=== PATIENT | male | born 1960 | race Caucasian/White ===

== ENCOUNTER 2016-11-23 17:50 | Emergency (ER) | payer BC ==
[~2016-11-23] VITALS: Ht 170.2 cm; Wt 74.8 kg
[2016-11-23 19:38] LABS: BASOPHILS # (AUTO) 0.1 K/uL (0.0-8.0); BASOPHILS % (AUTO) 0.8 % (0.0-2.0); EOSINOPHILS # (AUTO) 0.1 K/uL (0.0-0.7); EOSINOPHILS % (AUTO) 1.7 % (0.0-7.0); HEMATOCRIT 41.9 % (36.7-47.1); HEMOGLOBIN 14.1 g/dL (12.5-16.3); LYMPHOCYTES # (AUTO) 1.4 K/uL (20.0-40.0); LYMPHOCYTES % (AUTO) 19.3 % (20.5-51.5); MEAN CORPUSCULAR HEMOGLOBIN 29.9 uug (23.8-33.4); MEAN CORPUSCULAR HGB CONC 34 g/dL (32.5-36.3); MEAN CORPUSCULAR VOLUME 88.5 fL (73.0-96.2); MONOCYTES # (AUTO) 0.7 K/uL (2.0-10.0); MONOCYTES % (AUTO) 9.8 % (0.0-11.0); NEUTROPHILS # (AUTO) 4.8 K/uL (1.8-8.9); NEUTROPHILS % (AUTO) 68.4 % (38.5-71.5); PLATELET COUNT (AUTO) 197 K/uL (152-348); RED BLOOD CELL COUNT(AUTO) 4.74 MIL/uL (4.06-5.63); RED CELL DISTRIBUTION WIDTH 12.5 % (12.1-16.2); WHITE BLOOD COUNT (AUTO) 7.1 K/uL (3.6-10.2)
[2016-11-23 19:49] LABS: CALCIUM 9.1 mg/dL (8.5-10.1); POTASSIUM 4.6 mmol/L (3.5-5.1)
[2016-11-23 19:55] LABS: ALBUMIN 3.9 g/dL (3.4-5.0); BILIRUBIN,TOTAL 0.5 mg/dL (0.2-1.0); TOTAL PROTEIN, SERUM 7.1 g/dL (6.4-8.2)
--- NOTE | 2016-11-23 20:42 | NUR ---
Patient discharged to home in stable conditon. Written and verbal after care instructions given. Patient verbalizes understanding of instructions.
== END 2016-11-23 20:44 | disposition home or self-care (01) ==
LOC: ER 17:50
DX: R59.0 Localized enlarged lymph nodes (principal); F41.9 Anxiety disorder, unspecified; M19.90 Unspecified osteoarthritis, unspecified site; F10.20 Alcohol dependence, uncomplicated; F17.200 Nicotine dependence, unspecified, uncomplicated; Z90.49 Acquired absence of other specified parts of digestive tract
CPT/HCPCS: 36415; 85025; 85651; A4663

== ENCOUNTER 2016-12-07 17:25 | Emergency (ER) | payer BC ==
[~2016-12-07] VITALS: Ht 170.2 cm; Wt 74.8 kg
[2016-12-07 17:50] LABS: *BILIRUBIN,URIN NEGATIVE (NEGATIVE); *BLOOD, URINE NEGATIVE (NEGATIVE); *CLARITY,URINE CLEAR (CLEAR); *COLOR,URINE YELLOW (YELLOW); *KETONES,URINE NEGATIVE (NEGATIVE); *PROTEIN,URINE NEGATIVE (NEGATIVE); *UROBILINOGEN,URINE 0.2 E.U./dl (NORMAL); LEUKOCYTE ESTERASE ,URINE NEGATIVE (NEGATIVE); NITRITE, URINE NEGATIVE (NEGATIVE); PH,URINE 6.5 (5.0-8.0); UGLUCOSE NEGATIVE (NEGATIVE)
[2016-12-07 18:02] LABS: BACTERIA,URINE NONE SEEN /HPF (NONE SEEN); RBC,URINE 0-3 /HPF (0-3); SQUAMOUS EPITHELIAL CELL,UR FEW /HPF (NONE SEEN); WBC,URINE 0-3 /HPF (0-3)
--- NOTE | 2016-12-07 19:11 | NUR ---
Pt evaluated by MD for lower abd pain. A/O x 4, VSS, nad noted, ambulates w/ steady gait. Patient discharged home in stable conditon. Written and verbal after care instructions given. Patient verbalizes understanding of instructions.
[2016-12-07 19:12] VITALS: BP 146/79
== END 2016-12-07 19:13 | disposition home or self-care (01) ==
LOC: ER 17:25
DX: R10.32 Left lower quadrant pain (principal); R10.31 Right lower quadrant pain; F41.9 Anxiety disorder, unspecified; M19.90 Unspecified osteoarthritis, unspecified site; F10.20 Alcohol dependence, uncomplicated; F17.200 Nicotine dependence, unspecified, uncomplicated; Z90.49 Acquired absence of other specified parts of digestive tract
CPT/HCPCS: A4663

== ENCOUNTER 2017-02-17 19:30 | Emergency (ER) | payer BC ==
[~2017-02-17] VITALS: Ht 167.6 cm; Wt 74.8 kg
[2017-02-17] MEDS ORDERED: IBUPROFEN 800 MG TABLET PO ONE (21:15)
[2017-02-17] MEDS ORDERED: IBUPROFEN 800 MG TABLET ONE (21:24)
[2017-02-17 21:25] LABS: BASOPHILS # (AUTO) 0.1 K/uL (0.0-8.0); BASOPHILS % (AUTO) 1.9 % (0.0-2.0); EOSINOPHILS # (AUTO) 0.2 K/uL (0.0-0.7); EOSINOPHILS % (AUTO) 2.4 % (0.0-7.0); HEMATOCRIT 40.6 % (40-50); HEMOGLOBIN 13.8 G/DL (14.0-18.0); LYMPHOCYTES # (AUTO) 1.9 K/UL (0.8-4.8); LYMPHOCYTES % (AUTO) 27.1 % (20.5-51.5); MEAN CORPUSCULAR HEMOGLOBIN 29.8 UUG (27.0-31.0); MEAN CORPUSCULAR HGB CONC 34 g/dL (32.0-37.0); MEAN CORPUSCULAR VOLUME 87.9 FL (82.0-92.0); MONOCYTES # (AUTO) 0.7 K/UL (0.1-1.30); MONOCYTES % (AUTO) 10.1 % (0.0-11.0); NEUTROPHILS % (AUTO) 58.5 % (38.5-71.5); PLATELET COUNT (AUTO) 193 K/UL (150-450); RED BLOOD CELL COUNT(AUTO) 4.62 MIL/UL (4.7-6.1); WHITE BLOOD COUNT (AUTO) 6.9 K/UL (4.0-11.2)
[2017-02-17 21:45] LABS: CREATININE 1.1 mg/dL (0.6-1.3); POTASSIUM 3.8 mmol/L (3.5-5.1)
--- NOTE | 2017-02-17 21:48 | NUR ---
Radiology at bedside for US.
[2017-02-17 21:51] LABS: BILIRUBIN,DIRECT 0.1 mg/dL (0.0-0.2); BILIRUBIN,TOTAL 0.3 mg/dL (0.2-1.0)
--- NOTE | 2017-02-17 23:51 | NUR ---
Patient discharged to home in stable conditon. Written and verbal after care instructions given. Patient verbalizes understanding of instructions.
== END 2017-02-17 23:52 | disposition home or self-care (01) ==
LOC: ER 19:30
DX: M79.604 Pain in right leg (principal); M19.90 Unspecified osteoarthritis, unspecified site; F10.20 Alcohol dependence, uncomplicated; F17.200 Nicotine dependence, unspecified, uncomplicated; F41.9 Anxiety disorder, unspecified; Z90.49 Acquired absence of other specified parts of digestive tract
CPT/HCPCS: 36415; 70030-TC; 72170; 73551; 73590; 85025; 85651; 85730; A4663

== ENCOUNTER 2017-12-06 10:01 | Emergency (ER) | payer BC ==
[~2017-12-06] VITALS: Ht 172.7 cm; Wt 83.9 kg
[2017-12-06 11:51] LABS: BASOPHILS # (AUTO) 0.1 K/uL (0.0-8.0); BASOPHILS % (AUTO) 1.3 % (0.0-2.0); EOSINOPHILS # (AUTO) 0.2 K/uL (0.0-0.7); EOSINOPHILS % (AUTO) 2.2 % (0.0-7.0); HEMATOCRIT 41.3 % (36.7-47.1); LYMPHOCYTES # (AUTO) 1.1 K/uL (20.0-40.0); LYMPHOCYTES % (AUTO) 15.4 % (20.5-51.5); MEAN CORPUSCULAR HGB CONC 34 g/dL (32.5-36.3); MONOCYTES # (AUTO) 0.9 K/uL (2.0-10.0); MONOCYTES % (AUTO) 12.3 % (0.0-11.0); NEUTROPHILS # (AUTO) 4.9 K/uL (1.8-8.9); NEUTROPHILS % (AUTO) 68.8 % (38.5-71.5); PLATELET COUNT (AUTO) 208 K/uL (152-348); RED BLOOD CELL COUNT(AUTO) 4.81 MIL/uL (4.06-5.63); WHITE BLOOD COUNT (AUTO) 7.1 K/uL (3.6-10.2)
[2017-12-06 12:06] LABS: CREATININE 1.1 mg/dL (0.6-1.3); POTASSIUM 4.7 mmol/L (3.5-5.1)
[2017-12-06 12:18] LABS: BILIRUBIN,DIRECT 0.1 mg/dL (0.0-0.2); BILIRUBIN,TOTAL 0.5 mg/dL (0.2-1.0)
--- NOTE | 2017-12-06 13:41 | NUR ---
Patient discharged to home in stable conditon. Written and verbal after care instructions given. Patient verbalizes understanding of instructions.
[2017-12-06 13:42] VITALS: BP 128/77
== END 2017-12-06 13:43 | disposition home or self-care (01) ==
LOC: ER 10:03
DX: R07.89 Other chest pain (principal); J45.909 Unspecified asthma, uncomplicated; M19.90 Unspecified osteoarthritis, unspecified site; F41.9 Anxiety disorder, unspecified; N41.9 Inflammatory disease of prostate, unspecified
CPT/HCPCS: 36415; 70030-TC; 71045; 85025; 85730; 93005; A4663

== ENCOUNTER 2018-05-25 11:17 | Emergency (ER) | payer BC ==
[~2018-05-25] VITALS: Ht 172.7 cm; Wt 81.6 kg
[2018-05-25 11:37] LABS: BASOPHILS # (AUTO) 0.1 K/uL (0.0-8.0); BASOPHILS % (AUTO) 1.2 % (0.0-2.0); EOSINOPHILS # (AUTO) 0.1 K/uL (0.0-0.7); EOSINOPHILS % (AUTO) 2.2 % (0.0-7.0); HEMOGLOBIN 14.3 g/dL (12.5-16.3); LYMPHOCYTES # (AUTO) 1.6 K/uL (20.0-40.0); LYMPHOCYTES % (AUTO) 25.7 % (20.5-51.5); MEAN CORPUSCULAR HEMOGLOBIN 30.5 uug (23.8-33.4); MEAN CORPUSCULAR HGB CONC 35 g/dL (32.5-36.3); MEAN CORPUSCULAR VOLUME 87.4 fL (73.0-96.2); MONOCYTES # (AUTO) 0.7 K/uL (2.0-10.0); MONOCYTES % (AUTO) 11.3 % (0.0-11.0); NEUTROPHILS # (AUTO) 3.7 K/uL (1.8-8.9); NEUTROPHILS % (AUTO) 59.6 % (38.5-71.5); PLATELET COUNT (AUTO) 214 K/uL (152-348); RED BLOOD CELL COUNT(AUTO) 4.69 MIL/uL (4.06-5.63); WHITE BLOOD COUNT (AUTO) 6.3 K/uL (3.6-10.2)
[2018-05-25 11:50] LABS: CREATININE 1.1 mg/dL (0.6-1.3); POTASSIUM 3.8 mmol/L (3.5-5.1)
[2018-05-25 11:55] LABS: BILIRUBIN,DIRECT 0.1 mg/dL (0.0-0.2); BILIRUBIN,TOTAL 0.4 mg/dL (0.2-1.0); TOTAL PROTEIN, SERUM 7.2 g/dL (6.4-8.2)
--- NOTE | 2018-05-25 12:40 | NUR ---
Patient discharged to home in stable conditon. Written and verbal after care instructions given. Patient verbalizes understanding of instructions.pt says feels better.
[2018-05-25 14:30] VITALS: BP 131/89
== END 2018-05-25 12:45 | disposition home or self-care (01) ==
LOC: ER 11:17
DX: R07.89 Other chest pain (principal); F17.200 Nicotine dependence, unspecified, uncomplicated
CPT/HCPCS: 36415; 70030-TC; 71045; 85025; 85730; 93005; A4663

== ENCOUNTER 2018-09-13 07:52 | Emergency (ER) | payer BC ==
[~2018-09-13] VITALS: Ht 172.7 cm; Wt 81.6 kg
--- NOTE | 2018-09-13 08:16 | NUR ---
Dr. Flynn at the bedside for MSE.
[2018-09-13] MEDS ORDERED: predniSONE 50 MG TABLET ONE (08:43)
[2018-09-13] MEDS ORDERED: predniSONE 50 MG TABLET PO ONE (08:45)
--- NOTE | 2018-09-13 09:14 | NUR ---
Patient discharged to home in stable conditon. Written and verbal after care instructions given. Patient verbalizes understanding of instructions.
[2018-09-13 09:15] VITALS: BP 123/72
== END 2018-09-13 09:16 | disposition home or self-care (01) ==
LOC: ER 07:52
DX: R60.9 Edema, unspecified (principal); F17.200 Nicotine dependence, unspecified, uncomplicated; Z90.49 Acquired absence of other specified parts of digestive tract
CPT/HCPCS: 36415; 86403; 87070; 99283; J7512; A4663

== ENCOUNTER 2019-01-16 09:09 | Emergency (ER) | payer BC ==
[~2019-01-16] VITALS: Ht 172.7 cm; Wt 83.9 kg
--- NOTE | 2019-01-16 09:37 | NUR ---
PT IS IN ROOM #1B. DR HURST EVALUATED THE PT.
[2019-01-16 09:48] LABS: BASOPHILS # (AUTO) 0.1 K/uL (0.0-8.0); BASOPHILS % (AUTO) 1.2 % (0.0-2.0); EOSINOPHILS # (AUTO) 0.1 K/uL (0.0-0.7); EOSINOPHILS % (AUTO) 2.1 % (0.0-7.0); HEMATOCRIT 42.2 % (36.7-47.1); LYMPHOCYTES # (AUTO) 1.3 K/uL (20.0-40.0); LYMPHOCYTES % (AUTO) 21.8 % (20.5-51.5); MEAN CORPUSCULAR HEMOGLOBIN 28.3 uug (23.8-33.4); MEAN CORPUSCULAR HGB CONC 33 g/dL (32.5-36.3); MEAN CORPUSCULAR VOLUME 85.6 fL (73.0-96.2); MONOCYTES # (AUTO) 0.7 K/uL (2.0-10.0); MONOCYTES % (AUTO) 12.4 % (0.0-11.0); NEUTROPHILS # (AUTO) 3.7 K/uL (1.8-8.9); NEUTROPHILS % (AUTO) 62.5 % (38.5-71.5); PLATELET COUNT (AUTO) 194 K/uL (152-348); RED BLOOD CELL COUNT(AUTO) 4.93 MIL/uL (4.06-5.63); WHITE BLOOD COUNT (AUTO) 5.9 K/uL (3.6-10.2)
[2019-01-16 09:49] LABS: CREATININE 1.3 mg/dL (0.6-1.3)
[2019-01-16 10:02] LABS: BILIRUBIN,DIRECT 0.2 mg/dL (0.0-0.2); BILIRUBIN,TOTAL 1.1 mg/dL (0.2-1.0); TOTAL PROTEIN, SERUM 7.4 g/dL (6.4-8.2)
--- NOTE | 2019-01-16 14:06 | NUR ---
PT WAS D/C'd TO HOME. D/C INSTRUCTIONS GIVEN TO THE PT.
[2019-01-16 14:10] VITALS: BP 129/72
== END 2019-01-16 14:11 | disposition home or self-care (01) ==
LOC: ER 09:10
DX: R07.89 Other chest pain (principal); F17.200 Nicotine dependence, unspecified, uncomplicated; Z90.49 Acquired absence of other specified parts of digestive tract
CPT/HCPCS: 36415; 70030-TC; 71045; 85025; 85730; 93005; A4663

== ENCOUNTER 2019-03-17 17:43 | Emergency (ER) | payer BC ==
[~2019-03-17] VITALS: Ht 170.2 cm; Wt 79.4 kg
--- NOTE | 2019-03-17 18:03 | NUR ---
PATIENT WAS SEEN BY . DC, RX AND FOLLOW UP INSTRUCTIONS GIVEN AND EXPLAINED TO PATIENT WHO STATES HE UNDERSTANDS ALL INSTRUCTIONS.
== END 2019-03-17 18:09 | disposition home or self-care (01) ==
LOC: ER 17:43
DX: K64.4 Residual hemorrhoidal skin tags (principal); E11.9 Type 2 diabetes mellitus without complications; F41.9 Anxiety disorder, unspecified; F17.200 Nicotine dependence, unspecified, uncomplicated; Z90.49 Acquired absence of other specified parts of digestive tract
CPT/HCPCS: A4663

== ENCOUNTER 2019-07-15 12:35 | Emergency (ER) | payer BC ==
[~2019-07-15] VITALS: Ht 170.2 cm; Wt 83.9 kg
[2019-07-15] MEDS ORDERED: FAMO10TA41 PO (12:40)
[2019-07-15 12:58] LABS: BASOPHILS # (AUTO) 0.1 K/uL (0.0-8.0); BASOPHILS % (AUTO) 1.4 % (0.0-2.0); EOSINOPHILS # (AUTO) 0.1 K/uL (0.0-0.7); EOSINOPHILS % (AUTO) 1.2 % (0.0-7.0); HEMATOCRIT 43.6 % (36.7-47.1); HEMOGLOBIN 14.5 g/dL (12.5-16.3); LYMPHOCYTES # (AUTO) 1.1 K/uL (20.0-40.0); LYMPHOCYTES % (AUTO) 16.8 % (20.5-51.5); MEAN CORPUSCULAR HEMOGLOBIN 29.4 uug (23.8-33.4); MEAN CORPUSCULAR HGB CONC 33 g/dL (32.5-36.3); MEAN CORPUSCULAR VOLUME 88.2 fL (73.0-96.2); MONOCYTES # (AUTO) 0.6 K/uL (2.0-10.0); MONOCYTES % (AUTO) 8.9 % (0.0-11.0); NEUTROPHILS # (AUTO) 4.6 K/uL (1.8-8.9); NEUTROPHILS % (AUTO) 71.7 % (38.5-71.5); PLATELET COUNT (AUTO) 289 K/uL (152-348); RED BLOOD CELL COUNT(AUTO) 4.94 MIL/uL (4.06-5.63); WHITE BLOOD COUNT (AUTO) 6.5 K/uL (3.6-10.2)
[2019-07-15 13:01] LABS: *BILIRUBIN,URIN NEGATIVE (NEGATIVE); *CLARITY,URINE CLEAR (CLEAR); *COLOR,URINE YELLOW (YELLOW); *KETONES,URINE NEGATIVE (NEGATIVE); *UROBILINOGEN,URINE 0.2 E.U./dl (NORMAL); LEUKOCYTE ESTERASE ,URINE NEGATIVE (NEGATIVE); NITRITE, URINE NEGATIVE (NEGATIVE); PH,URINE 6.5 (5.0-8.0); UGLUCOSE NEGATIVE (NEGATIVE)
[2019-07-15 13:03] LABS: *BLOOD, URINE NEGATIVE (NEGATIVE)
[2019-07-15] MEDS ORDERED: FAMOTIDINE. 20 MG/2 ML VIAL IV ONE (13:07)
[2019-07-15] MEDS ORDERED: LIDOCAINE VISCUS 2% 15 ML UDC ONE (13:07)
[2019-07-15] MEDS ORDERED: MAG HYDROX/AL HYDROX/SIMETH 30 ML LIQUID UDC ONE (13:07)
[2019-07-15] MEDS: FAMOTIDINE. 20 MG/2 ML VIAL IV ONE (13:08)
[2019-07-15] MEDS: LIDOCAINE VISCUS 2% 15 ML UDC MM ONE (13:10)
[2019-07-15] MEDS: MAG HYDROX/AL HYDROX/SIMETH 30 ML LIQUID UDC PO ONE (13:10)
--- NOTE | 2019-07-15 14:13 | NUR ---
Patient is resting comfortably on gurney while watching bedside TV.
--- NOTE | 2019-07-15 15:19 | NUR ---
still for results & disposition, OUT for lunch, endorsed to DAR De Santiago
[2019-07-15 16:44] LABS: CREATININE 1.1 mg/dL (0.6-1.3); POTASSIUM 4.1 mmol/L (3.5-5.1)
[2019-07-15 16:49] LABS: BILIRUBIN,DIRECT 0.1 mg/dL (0.0-0.2); BILIRUBIN,TOTAL 0.5 mg/dL (0.2-1.0); TOTAL PROTEIN, SERUM 7.8 g/dL (6.4-8.2)
--- NOTE | 2019-07-15 17:12 | NUR ---
IV removed. Catheter intact and site benign. Pressure and 4x4 gauze applied to site. No bleeding noted.
--- NOTE | 2019-07-15 17:13 | NUR ---
Patient discharged to home in stable conditon. Written and verbal after care instructions given. Patient verbalizes understanding of instructions.
== END 2019-07-15 17:14 | disposition home or self-care (01) ==
LOC: ER 12:35
DX: R10.12 Left upper quadrant pain (principal); F41.9 Anxiety disorder, unspecified; F17.200 Nicotine dependence, unspecified, uncomplicated; Z90.49 Acquired absence of other specified parts of digestive tract; Z79.899 Other long term (current) drug therapy
CPT/HCPCS: 36415; 74176; 80048; 80076; 81001; 83690; 85025; 96374; 99284; J3490; A4663

== ENCOUNTER 2019-08-03 10:06 | Emergency (ER) | payer BC ==
[~2019-08-03] VITALS: Ht 170.2 cm; Wt 83.9 kg
[~2019-08-03 10:06] MED LIST: FAMO10TA41 PO
--- NOTE | 2019-08-03 10:20 | NUR ---
Patient ambulated with stable gait. Speech is clear, speaks in complete sentences. A/Ox4. No acute neuro deficits. Patient came for c/o elevated blood pressure. Denies any ANTONIO, dizziness, or any shortness of breath. Denies CP. Patient appears very anxious, states he does take anti-anxiety medications at home.
--- NOTE | 2019-08-03 10:39 | NUR ---
Patient discharged to home in stable conditon. Written and verbal after care instructions given. Patient verbalizes understanding of instructions. Patient ambulated with stable gait.
[2019-08-03 10:40] VITALS: BP 129/81
== END 2019-08-03 10:40 | disposition home or self-care (01) ==
LOC: ER 10:07
DX: F41.9 Anxiety disorder, unspecified (principal); F17.200 Nicotine dependence, unspecified, uncomplicated; Z79.899 Other long term (current) drug therapy
CPT/HCPCS: A4663

== ENCOUNTER 2019-08-09 04:32 | Inpatient (IN) | payer BC ==
[~2019-08-09] VITALS: Ht 170.2 cm; Wt 80.8 kg
--- NOTE | 2019-08-09 04:35 | NUR ---
Dr. Buckley at bedside for MSe
[2019-08-09] MEDS ORDERED: ASPIRIN 325 MG TABLET PO ONE (04:45)
[2019-08-09] MEDS ORDERED: ASPIRIN 325 MG TABLET ONE (04:46)
[2019-08-09] MEDS ORDERED: vitamin d PO (04:57)
[2019-08-09 05:06] LABS: BASOPHILS # (AUTO) 0.1 K/uL (0.0-8.0); BASOPHILS % (AUTO) 0.9 % (0.0-2.0); CREATININE 1.1 mg/dL (0.6-1.3); EOSINOPHILS # (AUTO) 0.2 K/uL (0.0-0.7); EOSINOPHILS % (AUTO) 2.3 % (0.0-7.0); HEMATOCRIT 44.9 % (36.7-47.1); HEMOGLOBIN 15.2 g/dL (12.5-16.3); LYMPHOCYTES # (AUTO) 1.8 K/uL (20.0-40.0); LYMPHOCYTES % (AUTO) 28.2 % (20.5-51.5); MEAN CORPUSCULAR HEMOGLOBIN 29.5 uug (23.8-33.4); MEAN CORPUSCULAR HGB CONC 34 g/dL (32.5-36.3); MEAN CORPUSCULAR VOLUME 87.2 fL (73.0-96.2); MONOCYTES # (AUTO) 0.8 K/uL (2.0-10.0); MONOCYTES % (AUTO) 12.4 % (0.0-11.0); NEUTROPHILS # (AUTO) 3.6 K/uL (1.8-8.9); NEUTROPHILS % (AUTO) 56.2 % (38.5-71.5); PLATELET COUNT (AUTO) 210 K/uL (152-348); RED BLOOD CELL COUNT(AUTO) 5.15 MIL/uL (4.06-5.63); WHITE BLOOD COUNT (AUTO) 6.5 K/uL (3.6-10.2)
[2019-08-09] MEDS ORDERED: NITROGLYCERIN 0.4 MG/TAB BOTTLE SL ONE (05:15)
[2019-08-09 05:19] LABS: BILIRUBIN,DIRECT 0.2 mg/dL (0.0-0.2); BILIRUBIN,TOTAL 0.8 mg/dL (0.2-1.0); TOTAL PROTEIN, SERUM 7.6 g/dL (6.4-8.2)
--- NOTE | 2019-08-09 05:22 | NUR ---
Called [facility] for panel placement
--- NOTE | 2019-08-09 05:53 | NUR ---
Dr. Buckley on panel call with Sherry Winchester NP.
--- NOTE | 2019-08-09 05:58 | NUR ---
Pt. admitted to Telemetry , under care of Sherry Winchester NP [facility] completed
[2019-08-09] MEDS ORDERED: ZOLPIDEM 5 MG TABLET PO PRN (06:30)
[2019-08-09] MEDS ORDERED: ONDANSETRON 4 MG/2 ML VIAL IV PRN (06:30)
[2019-08-09] MEDS ORDERED: ACETAMINOPHEN 325 MG TABLET PO PRN (06:30)
[2019-08-09] MEDS ORDERED: Z GUARD REMEDY PASTE 57 GM TUBE TOP PRN (06:30)
[2019-08-09] MEDS ORDERED: HYDROCODONE/APAP 5-325MG TABLET PO PRN (06:30)
[2019-08-09] MEDS ORDERED: MAGNESIUM HYDROXIDE 30 ML LIQUID UDC PO PRN (06:30)
[2019-08-09 06:39] VITALS: BP 155/98
--- NOTE | 2019-08-09 07:30 | NUR ---
Received this admission from ER, 59 yo male, with the diagnosis of chest pain. Awake, alert, oriented x 4. Anxious. Tele SR 65. Discussed plan of care. Vital signs rechecked.
[2019-08-09 08:00] VITALS: BP 130/80
[2019-08-09] MEDS ORDERED: ASPIRIN 81 MG TAB.CHEW PO SCH (09:00)
[2019-08-09 11:31] VITALS: BP 133/78
[2019-08-09] MEDS ORDERED: ASPI81TA31 PO (11:38)
[2019-08-09] MEDS ORDERED: ATOR20TA PO (11:38)
--- NOTE | 2019-08-09 13:02 | NUR ---
Troponin negative; With discharge order to home saline lock removed. Tele removed. Prescription and DC instruction given to patient, verbalized understanding. Went home per ambulatory per request, in fair condition, not in distress, afebrile.
[2019-08-09] MEDS ORDERED: ATORVASTATIN 20 MG TABLET PO SCH (21:00)
[2019-08-10] MEDS ORDERED: ASPIRIN 81 MG TAB.CHEW PO SCH (09:00)
== END 2019-08-09 13:00 | disposition home or self-care (01) | DRG 313 ==
LOC: ER 04:33 → TELE3 06:16
PROVIDERS: ADMIT Nurse Practitioner Acute Care
DX: R07.89 Other chest pain (principal); K21.9 Gastro-esophageal reflux disease without esophagitis; F41.9 Anxiety disorder, unspecified; N28.1 Cyst of kidney, acquired; Z82.49 Family history of ischemic heart disease and other diseases of the circulatory system; Z87.891 Personal history of nicotine dependence; Z90.49 Acquired absence of other specified parts of digestive tract; Z83.3 Family history of diabetes mellitus
CPT/HCPCS: 36415; 70030-TC; 71045; 85025; 93005; A4663; G0378

== ENCOUNTER 2019-08-30 06:20 | Emergency (ER) | payer BC ==
[~2019-08-30] VITALS: Ht 170.2 cm; Wt 83.9 kg
[~2019-08-30 06:20] MED LIST changes: +ASPI81TA31 PO; +ATOR20TA PO; +vitamin d PO
--- NOTE | 2019-08-30 06:30 | NUR ---
Patient arrived at the ER with chief complaint of palpitation x1day. Patient AAOx4. Denies any chest pain. In no acute respiratory distress. No /GI concern.
--- NOTE | 2019-08-30 06:36 | NUR ---
Dr Bates on bedside for MSE.
--- NOTE | 2019-08-30 06:59 | NUR ---
Report given to Day shift nurse Rain.
[2019-08-30 07:18] VITALS: BP 135/88
--- NOTE | 2019-08-30 07:19 | NUR ---
Patient discharged to home in stable conditon. Written and verbal after care instructions given. Patient verbalizes understanding of instructions.
== END 2019-08-30 07:19 | disposition home or self-care (01) ==
LOC: ER 06:22
DX: F41.9 Anxiety disorder, unspecified (principal); I10 Essential (primary) hypertension; Z90.49 Acquired absence of other specified parts of digestive tract; Z79.899 Other long term (current) drug therapy
CPT/HCPCS: 93005; A4663

== ENCOUNTER 2021-03-02 07:45 | Emergency (ER) | payer BC ==
[~2021-03-02] VITALS: Ht 170.2 cm; Wt 74.8 kg
[~2021-03-02 07:45] MED LIST changes: -ASPI81TA31 PO; -ATOR20TA PO
[2021-03-02] MEDS ORDERED: CEPH250C PO (08:07)
--- NOTE | 2021-03-02 08:11 | NUR ---
PT WAS EVALUATED BY DR WILLOUGHBY. PT WAS D/C'd TO HOME D/C INSTRUCTIONS GIVEN TO THE PT BY DR WILLOUGHBY.
[2021-03-02 08:13] VITALS: BP 131/68
== END 2021-03-02 08:14 | disposition home or self-care (01) ==
LOC: ER 07:45
DX: H01.001 Unspecified blepharitis right upper eyelid (principal); Z83.3 Family history of diabetes mellitus; Z90.49 Acquired absence of other specified parts of digestive tract; M19.90 Unspecified osteoarthritis, unspecified site; F41.9 Anxiety disorder, unspecified; Z79.899 Other long term (current) drug therapy
CPT/HCPCS: A4663

== ENCOUNTER 2021-04-02 11:25 | Emergency (ER) | payer BC ==
[~2021-04-02] VITALS: Ht 170.2 cm; Wt 74.8 kg
[~2021-04-02 11:25] MED LIST changes: +CEPH250C PO
[2021-04-02] MEDS ORDERED: BACI3.5O5 OP (12:17)
--- NOTE | 2021-04-02 12:20 | NUR ---
Patient discharged to home in stable condition. Written and verbal after care instructions given. Patient verbalizes understanding of instructions. Stressed follow up or return to ER for worsening s/s.
== END 2021-04-02 12:21 | disposition home or self-care (01) ==
LOC: ER 11:25
DX: H01.001 Unspecified blepharitis right upper eyelid (principal); Z83.3 Family history of diabetes mellitus; Z90.49 Acquired absence of other specified parts of digestive tract; Z87.09 Personal history of other diseases of the respiratory system
CPT/HCPCS: A4663

== ENCOUNTER 2021-04-09 11:24 | Emergency (ER) | payer BC ==
[~2021-04-09] VITALS: Ht 170.2 cm; Wt 74.8 kg
[~2021-04-09 11:24] MED LIST changes: +BACI3.5O5 OP
--- NOTE | 2021-04-09 11:40 | NUR ---
Dr Norris at the bedside for MSE.
[2021-04-09 11:58] LABS: HEMATOCRIT 41.4 % (36.7-47.1); MEAN CORPUSCULAR HEMOGLOBIN 30.2 uug (23.8-33.4); MEAN CORPUSCULAR VOLUME 89.9 fL (73.0-96.2); PLATELET COUNT (AUTO) 219 K/uL (152-348)
[2021-04-09 12:02] LABS: *BILIRUBIN,URIN NEGATIVE (NEGATIVE); *BLOOD, URINE NEGATIVE (NEGATIVE); *CLARITY,URINE CLEAR (CLEAR); *COLOR,URINE LIGHT YELLOW (YELLOW); *KETONES,URINE NEGATIVE (NEGATIVE); *UROBILINOGEN,URINE 0.2 E.U./dl (NORMAL); LEUKOCYTE ESTERASE ,URINE NEGATIVE (NEGATIVE); NITRITE, URINE NEGATIVE (NEGATIVE); PH,URINE 6.5 (5.0-8.0); UGLUCOSE NEGATIVE (NEGATIVE)
[2021-04-09 12:04] LABS: CREATININE 0.8 mg/dL (0.6-1.3); POTASSIUM 4.9 mmol/L (3.5-5.1)
[2021-04-09 12:13] LABS: BILIRUBIN,DIRECT 0.1 mg/dL (0.0-0.2); BILIRUBIN,TOTAL 0.4 mg/dL (0.2-1.0); TOTAL PROTEIN, SERUM 7.3 g/dL (6.4-8.2)
[2021-04-09 12:52] VITALS: BP 127/81
== END 2021-04-09 12:53 | disposition home or self-care (01) ==
LOC: ER 11:24
DX: F41.9 Anxiety disorder, unspecified (principal); D17.1 Benign lipomatous neoplasm of skin and subcutaneous tissue of trunk; Z90.49 Acquired absence of other specified parts of digestive tract; Z83.3 Family history of diabetes mellitus
CPT/HCPCS: 36415; 76870; 83690; 85025; A4663

== ENCOUNTER 2021-06-07 17:37 | Emergency (ER) | payer BC, OTHER ==
[~2021-06-07] VITALS: Ht 170.2 cm; Wt 72.6 kg
--- NOTE | 2021-06-07 17:47 | NUR ---
Pt was triaged and placed back in the ER waiting room as there are no ER beds available at this time.
--- NOTE | 2021-06-07 21:28 | NUR ---
ROOM JUST MADE AVAILABLE IN THE ER. PLACED IN ROOM 3.
[2021-06-07 21:58] LABS: HEMATOCRIT 42.8 % (36.7-47.1); MEAN CORPUSCULAR HEMOGLOBIN 30.1 uug (23.8-33.4); MEAN CORPUSCULAR VOLUME 89.2 fL (73.0-96.2); PLATELET COUNT (AUTO) 242 K/uL (152-348)
[2021-06-07 22:06] LABS: CREATININE 0.8 mg/dL (0.6-1.3); POTASSIUM 4.2 mmol/L (3.5-5.1)
[2021-06-07 22:07] LABS: *BILIRUBIN,URIN NEGATIVE (NEGATIVE); *BLOOD, URINE NEGATIVE (NEGATIVE); *CLARITY,URINE CLEAR (CLEAR); *COLOR,URINE LIGHT YELLOW (YELLOW); *KETONES,URINE NEGATIVE (NEGATIVE); *UROBILINOGEN,URINE 0.2 E.U./dl (NORMAL); LEUKOCYTE ESTERASE ,URINE NEGATIVE (NEGATIVE); NITRITE, URINE NEGATIVE (NEGATIVE); UGLUCOSE NEGATIVE (NEGATIVE)
[2021-06-07 22:19] LABS: BILIRUBIN,DIRECT 0.1 mg/dL (0.0-0.2); BILIRUBIN,TOTAL 0.4 mg/dL (0.2-1.0)
[2021-06-07 23:46] VITALS: BP 116/69
== END 2021-06-07 23:46 | disposition home or self-care (01) ==
LOC: ER 17:38
DX: R10.31 Right lower quadrant pain (principal); R22.2 Localized swelling, mass and lump, trunk; Z83.3 Family history of diabetes mellitus; Z90.49 Acquired absence of other specified parts of digestive tract
CPT/HCPCS: 36415; 76705; 83690; 85025; A4663

== ENCOUNTER 2021-06-30 10:31 | Emergency (ER) | payer OTHER ==
[~2021-06-30] VITALS: Ht 170.2 cm; Wt 72.6 kg
[2021-06-30 11:22] LABS: HEMATOCRIT 39.7 % (36.7-47.1); MEAN CORPUSCULAR HEMOGLOBIN 30.2 uug (23.8-33.4); MEAN CORPUSCULAR VOLUME 88.8 fL (73.0-96.2); PLATELET COUNT (AUTO) 243 K/uL (152-348)
[2021-06-30 11:36] LABS: BILIRUBIN,DIRECT 0.1 mg/dL (0.0-0.2); BILIRUBIN,TOTAL 0.6 mg/dL (0.2-1.0); POTASSIUM 3.9 mmol/L (3.5-5.1); TOTAL PROTEIN, SERUM 7.6 g/dL (6.4-8.2)
[2021-06-30 11:38] LABS: *OCCULT BLOOD STOOL NEGATIVE (NEGATIVE)
--- NOTE | 2021-06-30 12:35 | NUR ---
Saline lock removed, clear and intact. Patient discharged to home in stable condition. Written and verbal after care instructions given. Patient verbalizes understanding of instructions. Stressed follow up or return to ER for worsening s/s.
[2021-06-30 12:51] VITALS: BP 139/77
== END 2021-06-30 12:50 | disposition home or self-care (01) ==
LOC: ER 10:32
DX: K62.5 Hemorrhage of anus and rectum (principal); F17.200 Nicotine dependence, unspecified, uncomplicated; Z90.49 Acquired absence of other specified parts of digestive tract; Z83.3 Family history of diabetes mellitus
CPT/HCPCS: 36415; 70030-TC; 83690; 85025; 85730; A4663; J7030

== ENCOUNTER 2021-07-29 19:40 | Emergency (ER) | payer OTHER ==
[~2021-07-29] VITALS: Ht 170.2 cm; Wt 79.4 kg
[2021-07-29] MEDS ORDERED: OMEP20TA5 PO (20:08)
--- NOTE | 2021-07-29 20:25 | NUR ---
Dr. Schumacher at bedside for MSE.
[2021-07-29] MEDS ORDERED: DICYCLOMINE HCL LIQ 10 MG/5 ML UDC PO ONE (20:30)
[2021-07-29] MEDS ORDERED: ONDANSETRON 4 MG/2 ML VIAL IV ONE (20:30)
[2021-07-29] MEDS ORDERED: IV NORMAL SALINE 1000 ML BAG IV ONE (20:30)
[2021-07-29] MEDS ORDERED: ONDANSETRON 4 MG/2 ML VIAL ONE (20:46)
[2021-07-29 21:01] LABS: HEMATOCRIT 40.4 % (36.7-47.1); MEAN CORPUSCULAR HEMOGLOBIN 29.8 uug (23.8-33.4); MEAN CORPUSCULAR VOLUME 88.7 fL (73.0-96.2); PLATELET COUNT (AUTO) 232 K/uL (152-348)
[2021-07-29 21:02] LABS: POTASSIUM 3.8 mmol/L (3.5-5.1)
[2021-07-29 21:09] LABS: BILIRUBIN,DIRECT 0.1 mg/dL (0.0-0.2); BILIRUBIN,TOTAL 0.4 mg/dL (0.2-1.0); TOTAL PROTEIN, SERUM 7.3 g/dL (6.4-8.2)
[2021-07-29] MEDS ORDERED: IV NORMAL SALINE 250 ML IV ONE (21:20)
[2021-07-29] MEDS ORDERED: IOHEXOL 300MG/ML 100 ML INFUS..BTL ONE (21:20)
[2021-07-29] MEDS ORDERED: SWABABLE VALVE TRANSFER SET EA MC ONE (21:20)
--- NOTE | 2021-07-29 21:25 | NUR ---
Pt out of ER for CT.
--- NOTE | 2021-07-29 21:50 | NUR ---
Pt back to ER from CT.
[2021-07-29] MEDS ORDERED: LOPE-195 PO (22:57)
[2021-07-29] MEDS ORDERED: DICY20TA11 PO (22:57)
[2021-07-29] MEDS ORDERED: ONDA4TAB5 PO (22:57)
[2021-07-29 23:05] VITALS: BP 140/85
--- NOTE | 2021-07-29 23:05 | NUR ---
Patient discharged to home in stable condition. Written and verbal after care instructions given. Patient verbalizes understanding of instructions. Stressed follow up or return to ER for worsening s/s. Patient out of ER with steady gait, no acute signs of distress, VSS, all belongings taken, IV site discontinued, provided with copies of lab results, xray, and CT results.
== END 2021-07-29 23:06 | disposition home or self-care (01) ==
LOC: ER 19:42
DX: R10.13 Epigastric pain (principal); F41.9 Anxiety disorder, unspecified; R19.7 Diarrhea, unspecified; R11.0 Nausea; Z20.822 Contact with and (suspected) exposure to COVID-19; I45.10 Unspecified right bundle-branch block; Z87.891 Personal history of nicotine dependence; Z90.49 Acquired absence of other specified parts of digestive tract
CPT/HCPCS: 36415; 71045; 74177; 80048; 80076; 83690; 84484; 85025; 85730; 87426; 93005; 96360; 99285; Q9967; 70030-TC; A4663; J2405; J7030; J7050

== ENCOUNTER 2021-11-15 13:49 | Emergency (ER) | payer OTHER ==
[~2021-11-15] VITALS: Ht 167.6 cm; Wt 79.4 kg
[~2021-11-15 13:49] MED LIST changes: -BACI3.5O5 OP; -CEPH250C PO; +DICY20TA11 PO; -FAMO10TA41 PO; +LOPE-195 PO; +OMEP20TA5 PO; +ONDA4TAB5 PO; -vitamin d PO
--- NOTE | 2021-11-15 13:55 | NUR ---
Patient ambulatory, alert and orientedx4 complaints of dizziness,nausea,headache, denies chest discomfort,vomiting. Vitals stable.
--- NOTE | 2021-11-15 14:00 | NUR ---
MD at bedside, medical screening exam in process.
[2021-11-15 15:24] LABS: HEMATOCRIT 40.9 % (36.7-47.1); MEAN CORPUSCULAR HEMOGLOBIN 29.2 uug (23.8-33.4); MEAN CORPUSCULAR VOLUME 87.3 fL (73.0-96.2); PLATELET COUNT (AUTO) 221 K/uL (152-348)
[2021-11-15 15:45] LABS: BILIRUBIN,DIRECT 0.2 mg/dL (0.0-0.2); BILIRUBIN,TOTAL 0.5 mg/dL (0.2-1.0); POTASSIUM 4.1 mmol/L (3.5-5.1); TOTAL PROTEIN, SERUM 7.4 g/dL (6.4-8.2)
[2021-11-15] MEDS ORDERED: ONDA8TAB13 PO (16:14)
[2021-11-15] MEDS ORDERED: OMEP40CA21 PO (16:14)
[2021-11-15 16:30] VITALS: BP 125/80
== END 2021-11-15 16:31 | disposition home or self-care (01) ==
LOC: ER 13:49
DX: R51.9 Headache, unspecified (principal); R11.0 Nausea; F41.9 Anxiety disorder, unspecified; Z90.49 Acquired absence of other specified parts of digestive tract; R03.0 Elevated blood-pressure reading, without diagnosis of hypertension; Z83.3 Family history of diabetes mellitus
CPT/HCPCS: 36415; 70450; 85025; A4663

== ENCOUNTER 2022-05-16 07:40 | Emergency (ER) | payer OTHER ==
[~2022-05-16] VITALS: Ht 170.2 cm; Wt 81.6 kg
[~2022-05-16 07:40] MED LIST changes: +OMEP40CA21 PO; +ONDA8TAB13 PO
[2022-05-16] MEDS ORDERED: ATOR10TA PO (07:57)
[2022-05-16 08:13] LABS: HEMATOCRIT 42.3 % (36.7-47.1); MEAN CORPUSCULAR VOLUME 88.5 fL (73.0-96.2); PLATELET COUNT (AUTO) 221 K/uL (152-348)
--- NOTE | 2022-05-16 08:15 | NUR ---
Pt arrived with c/o diarrhea "for about a week and a half" - per pt, color is black d/t pepto bismol intake according to the pt. Denies headache, n/v. No signs of dehydration. Pt stated that he has been hydrating himself by drinking lots of gatorade and water. Seen by Dr. Bates for MSE.
[2022-05-16] MEDS ORDERED: LOPE2CAP PO (08:16)
[2022-05-16] MEDS ORDERED: CIPR-262 PO (08:16)
[2022-05-16 08:20] LABS: CREATININE 1.1 mg/dL (0.6-1.3); POTASSIUM 4.1 mmol/L (3.5-5.1)
[2022-05-16 08:27] LABS: BILIRUBIN,DIRECT 0.1 mg/dL (0.0-0.2); BILIRUBIN,TOTAL 0.7 mg/dL (0.2-1.0); TOTAL PROTEIN, SERUM 7.5 g/dL (6.4-8.2)
--- NOTE | 2022-05-16 08:48 | NUR ---
Pt discharged to home in stable condition. Written and verbal after care instructions given. Pt verbalizes understanding of instructions. Stressed follow up or return to ER for worsening s/s.
[2022-05-16 08:50] VITALS: BP 126/94
== END 2022-05-16 08:48 | disposition home or self-care (01) ==
LOC: ER 07:40
DX: R19.7 Diarrhea, unspecified (principal); Z90.49 Acquired absence of other specified parts of digestive tract; K21.9 Gastro-esophageal reflux disease without esophagitis; F41.9 Anxiety disorder, unspecified; E78.00 Pure hypercholesterolemia, unspecified; Z79.899 Other long term (current) drug therapy; Z83.3 Family history of diabetes mellitus
CPT/HCPCS: 36415; 83690; 85025; A4663

== ENCOUNTER 2022-12-02 19:46 | Emergency (ER) | payer OTHER ==
[~2022-12-02] VITALS: Ht 170.2 cm; Wt 79.4 kg
[~2022-12-02 19:46] MED LIST changes: +ATOR10TA PO; +CIPR-262 PO; -DICY20TA11 PO; -LOPE-195 PO; +LOPE2CAP PO; -OMEP20TA5 PO; -ONDA4TAB5 PO; -ONDA8TAB13 PO
--- NOTE | 2022-12-02 20:10 | NUR ---
PT AMB TO RM 3 WITH STEADY GAIT WITH C/O ABD PAIN.
--- NOTE | 2022-12-02 20:15 | NUR ---
AT BEDSIDE FOR EVAL.
--- NOTE | 2022-12-02 20:24 | NUR ---
LAB AT BEDSIDE DRAWING BLOOD.
--- NOTE | 2022-12-02 20:31 | NUR ---
PT UP OOB AMB TO BR WITH STEADY GAIT. PT VOIDED.
[2022-12-02 20:41] LABS: HEMATOCRIT 41.7 % (36.7-47.1); MEAN CORPUSCULAR HEMOGLOBIN 29.9 uug (23.8-33.4); MEAN CORPUSCULAR VOLUME 89.9 fL (73.0-96.2); PLATELET COUNT (AUTO) 202 K/uL (152-348)
[2022-12-02 20:43] LABS: CREATININE 1.2 mg/dL (0.6-1.3); POTASSIUM 3.8 mmol/L (3.5-5.1)
[2022-12-02] MEDS ORDERED: BLOO-1730 MC (21:12)
--- NOTE | 2022-12-02 21:30 | NUR ---
PT A,A AND O X 4 WI8TH NO C/O PAIN AND NAD OBSERVED.Patient discharged to home in stable condition. Written and verbal after care instructions given. Patient verbalizes understanding of instructions. Stressed follow up or return to ER for worsening s/s. PT AMB OUT WITH STEADY GAIT.
[2022-12-02 21:40] VITALS: BP 131/80
== END 2022-12-02 21:30 | disposition home or self-care (01) ==
LOC: ER 19:48
DX: S30.1XXA Contusion of abdominal wall, initial encounter (principal); F41.9 Anxiety disorder, unspecified; E78.00 Pure hypercholesterolemia, unspecified; K21.9 Gastro-esophageal reflux disease without esophagitis; Z90.49 Acquired absence of other specified parts of digestive tract; Z79.2 Long term (current) use of antibiotics; Z79.899 Other long term (current) drug therapy; X58.XXXA Exposure to other specified factors, initial encounter; Y93.89 Activity, other specified; Y92.89 Other specified places as the place of occurrence of the external cause; Y99.8 Other external cause status
CPT/HCPCS: 36415; 83735; 85025; 85730; A4663

== ENCOUNTER 2022-12-12 11:03 | Emergency (ER) | payer OTHER ==
[~2022-12-12] VITALS: Ht 170.2 cm; Wt 79.4 kg
[~2022-12-12 11:03] MED LIST changes: +BLOO-1730 MC
--- NOTE | 2022-12-12 11:40 | NUR ---
Pt seen by MD for bedside Eval. Safety measures in place. Will continue to monitor.
[2022-12-12 11:47] VITALS: BP 142/83
== END 2022-12-12 11:48 | disposition home or self-care (01) ==
LOC: ER 11:03
DX: D17.5 Benign lipomatous neoplasm of intra-abdominal organs (principal); F41.9 Anxiety disorder, unspecified; E78.5 Hyperlipidemia, unspecified; K21.9 Gastro-esophageal reflux disease without esophagitis; Z90.49 Acquired absence of other specified parts of digestive tract; Z79.2 Long term (current) use of antibiotics; Z79.899 Other long term (current) drug therapy
CPT/HCPCS: A4663

== ENCOUNTER 2023-03-16 09:35 | Emergency (ER) | payer OTHER ==
[~2023-03-16] VITALS: Ht 170.2 cm; Wt 79.4 kg
[2023-03-16 09:35] VITALS: O2SAT 99
== END 2023-03-16 10:05 | disposition home or self-care (01) ==
LOC: ER 09:39
DX: R22.42 Localized swelling, mass and lump, left lower limb (principal); E78.5 Hyperlipidemia, unspecified; K21.9 Gastro-esophageal reflux disease without esophagitis; Z90.49 Acquired absence of other specified parts of digestive tract; Z79.2 Long term (current) use of antibiotics; Z79.899 Other long term (current) drug therapy
CPT/HCPCS: A4663

== ENCOUNTER 2023-04-13 15:06 | Emergency (ER) | payer OTHER ==
[~2023-04-13] VITALS: Ht 170.2 cm; Wt 79.4 kg
[2023-04-13 15:24] VITALS: O2SAT 98
== END 2023-04-13 15:50 | disposition home or self-care (01) ==
LOC: ER 15:09
DX: R22.42 Localized swelling, mass and lump, left lower limb (principal); F41.9 Anxiety disorder, unspecified; E78.5 Hyperlipidemia, unspecified; K21.9 Gastro-esophageal reflux disease without esophagitis; Z90.49 Acquired absence of other specified parts of digestive tract; Z79.899 Other long term (current) drug therapy; Z79.2 Long term (current) use of antibiotics
CPT/HCPCS: A4663

== ENCOUNTER 2023-06-15 13:12 | Emergency (ER) | payer OTHER ==
[~2023-06-15] VITALS: Ht 170.2 cm; Wt 81.6 kg
[2023-06-15 13:20] VITALS: O2SAT 99
== END 2023-06-15 16:12 | disposition home or self-care (01) ==
LOC: ER 13:14
DX: R10.30 Lower abdominal pain, unspecified (principal); E78.00 Pure hypercholesterolemia, unspecified; K21.9 Gastro-esophageal reflux disease without esophagitis; F41.9 Anxiety disorder, unspecified; Z79.899 Other long term (current) drug therapy; Z90.49 Acquired absence of other specified parts of digestive tract; Z60.2 Problems related to living alone
CPT/HCPCS: A4606; A4663

== ENCOUNTER 2023-08-11 13:06 | Emergency (ER) | payer OTHER ==
[~2023-08-11] VITALS: Ht 172.7 cm; Wt 83.9 kg
[2023-08-11 14:35] LABS: BASOPHILS # (AUTO) 0.1 K/UL (0.0-0.2); BASOPHILS % (AUTO) 1.3 % (0.0-2.0); EOSINOPHILS # (AUTO) 0.1 K/uL (0.0-0.7); EOSINOPHILS % (AUTO) 1.5 % (0.0-7.0); HEMATOCRIT 41.5 % (36.7-47.1); HEMOGLOBIN 13.6 g/dL (12.5-16.3); LYMPHOCYTES % (AUTO) 14.5 % (20.5-51.5); MEAN CORPUSCULAR HEMOGLOBIN 29.7 uug (23.8-33.4); MEAN CORPUSCULAR HGB CONC 33 g/dL (32.5-36.3); MEAN CORPUSCULAR VOLUME 90.5 fL (73.0-96.2); MONOCYTES # (AUTO) 0.8 K/uL (0.1-1.30); MONOCYTES % (AUTO) 11.1 % (0.0-11.0); NEUTROPHILS # (AUTO) 4.9 K/uL (1.8-8.9); NEUTROPHILS % (AUTO) 71.6 % (38.5-71.5); PLATELET COUNT (AUTO) 222 K/uL (152-348); RED BLOOD CELL COUNT(AUTO) 4.58 MIL/uL (4.06-5.63); RED CELL DISTRIBUTION WIDTH 13.3 % (12.1-16.2); WHITE BLOOD COUNT (AUTO) 6.8 K/uL (3.6-10.2)
[2023-08-11 14:47] LABS: DIFFERENTIAL COMMENT 1
[2023-08-11 15:04] LABS: CALCIUM 9.1 mg/dL (8.5-10.1); CARBON DIOXIDE 28 mmol/L (21-32); CHLORIDE 102 mmol/L (98-107); GLUCOSE 99 mg/dL (74-106); POTASSIUM 3.8 mmol/L (3.5-5.1); SODIUM SERUM 139 mmol/L (136-145); UREA NITROGEN, BLOOD 10 mg/dL (7-18)
[2023-08-11 15:13] LABS: ALANINE AMINOTRANSFERASE 38 U/L (16-63); ALBUMIN 4.2 g/dL (3.4-5.0); ALKALINE PHOSPHATASE 69 U/L (50-136); ASPARTATE AMINOTRANSFERASE 33 U/L (15-37); BILIRUBIN,DIRECT 0.2 mg/dL (0.0-0.2); BILIRUBIN,TOTAL 0.5 mg/dL (0.2-1.0); TOTAL PROTEIN, SERUM 7.7 g/dL (6.4-8.2)
[2023-08-11 15:32] VITALS: BP 150/90; O2SAT 100
[2023-08-11 16:57] LABS: LIPASE 41 U/L (16-77)
== END 2023-08-11 15:32 | disposition home or self-care (01) ==
LOC: ER 13:06
DX: K92.1 Melena (principal); E78.5 Hyperlipidemia, unspecified; K21.9 Gastro-esophageal reflux disease without esophagitis; Z90.49 Acquired absence of other specified parts of digestive tract; Z79.2 Long term (current) use of antibiotics; Z79.899 Other long term (current) drug therapy
CPT/HCPCS: 36415; 83690; 84484; 85025; 85730; A4606; A4663

== ENCOUNTER 2023-08-28 13:35 | Emergency (ER) | payer OTHER ==
[~2023-08-28] VITALS: Ht 170.2 cm; Wt 83.9 kg
[2023-08-28 16:34] VITALS: BP 130/77; O2SAT 100
== END 2023-08-28 16:40 | disposition home or self-care (01) ==
LOC: ER 13:35
DX: R05.9 Cough, unspecified (principal); R09.3 Abnormal sputum; E78.00 Pure hypercholesterolemia, unspecified; J40 Bronchitis, not specified as acute or chronic; K21.9 Gastro-esophageal reflux disease without esophagitis; F41.9 Anxiety disorder, unspecified; Z79.899 Other long term (current) drug therapy; Z90.49 Acquired absence of other specified parts of digestive tract
CPT/HCPCS: 71250; A4606; A4663

== ENCOUNTER 2023-11-18 11:09 | Emergency (ER) | payer OTHER ==
[~2023-11-18] VITALS: Ht 170.2 cm; Wt 81.6 kg
[2023-11-18] MEDS: IV NORMAL SALINE 1000 ML BAG IV ONE (11:15)
[2023-11-18 11:34] LABS: CALCIUM 8.6 mg/dL (8.5-10.1); CREATININE 0.9 mg/dL (0.6-1.3); POTASSIUM 3.7 mmol/L (3.5-5.1)
[2023-11-18 11:40] LABS: ALBUMIN 3.3 g/dL (3.4-5.0); BILIRUBIN,DIRECT 0.1 mg/dL (0.0-0.2); BILIRUBIN,TOTAL 0.5 mg/dL (0.2-1.0); TOTAL PROTEIN, SERUM 7.4 g/dL (6.4-8.2)
[2023-11-18 12:32] LABS: BASOPHILS % (AUTO) 0.3 % (0.0-2.0); EOSINOPHILS # (AUTO) 0.1 K/uL (0.0-0.7); HEMATOCRIT 41.6 % (36.7-47.1); HEMOGLOBIN 14.1 g/dL (12.5-16.3); LYMPHOCYTES # (AUTO) 0.9 K/uL (0.8-4.8); LYMPHOCYTES % (AUTO) 9.5 % (20.5-51.5); MEAN CORPUSCULAR HEMOGLOBIN 29.6 uug (23.8-33.4); MEAN CORPUSCULAR HGB CONC 34 g/dL (32.5-36.3); MEAN CORPUSCULAR VOLUME 87.4 fL (73.0-96.2); MONOCYTES # (AUTO) 0.9 K/uL (0.1-1.30); NEUTROPHILS # (AUTO) 7.5 K/uL (1.8-8.9); NEUTROPHILS % (AUTO) 79.2 % (38.5-71.5); PLATELET COUNT (AUTO) 176 K/uL (152-348); RED BLOOD CELL COUNT(AUTO) 4.76 MIL/uL (4.06-5.63); RED CELL DISTRIBUTION WIDTH 13.4 % (12.1-16.2); WHITE BLOOD COUNT (AUTO) 9.4 K/uL (3.6-10.2)
[2023-11-18 12:37] LABS: *OCCULT BLOOD STOOL POSITIVE (NEGATIVE); DIFFERENTIAL COMMENT 1
[2023-11-18] MEDS ORDERED: CIPR500T5 PO (12:51)
[2023-11-18] MEDS ORDERED: ONDA4TAB5 PO (12:51)
[2023-11-18] MEDS ORDERED: METR500T PO (12:51)
[2023-11-18 12:54] LABS: *BILIRUBIN,URIN NEGATIVE (NEGATIVE); *BLOOD, URINE 1+ (NEGATIVE); *CLARITY,URINE CLEAR (CLEAR); *COLOR,URINE YELLOW (YELLOW); *KETONES,URINE NEGATIVE (NEGATIVE); *PROTEIN,URINE NEGATIVE (NEGATIVE); *UROBILINOGEN,URINE 0.2 E.U./dl (NORMAL); LEUKOCYTE ESTERASE ,URINE NEGATIVE (NEGATIVE); NITRITE, URINE NEGATIVE (NEGATIVE); UGLUCOSE NEGATIVE (NEGATIVE)
[2023-11-18 13:07] LABS: WBC,URINE 0-3 /HPF (0-3)
[2023-11-18 13:10] VITALS: O2SAT 97
== END 2023-11-18 13:49 | disposition home or self-care (01) ==
LOC: ER 11:09
DX: K52.9 Noninfective gastroenteritis and colitis, unspecified (principal); K92.2 Gastrointestinal hemorrhage, unspecified; E78.5 Hyperlipidemia, unspecified; J40 Bronchitis, not specified as acute or chronic; K21.9 Gastro-esophageal reflux disease without esophagitis; Z90.49 Acquired absence of other specified parts of digestive tract; Z79.899 Other long term (current) drug therapy
CPT/HCPCS: 99284; 74176; 96360; 82270; 80076; 80048; 81001; 83690; 85025; 36415; J7040; A4606; A4663

== ENCOUNTER 2025-04-30 05:14 | Emergency (ER) | payer OTHER ==
[~2025-04-30] VITALS: Ht 170.2 cm; Wt 77.1 kg
[~2025-04-30 05:14] MED LIST changes: +CIPR500T5 PO; +METR500T PO; +ONDA4TAB5 PO
[2025-04-30 05:26] VITALS: BP 132/76
[2025-04-30 06:04] VITALS: BP 132/76; TEMP 98; O2SAT 99
== END 2025-04-30 06:04 | disposition home or self-care (01) ==
LOC: ER 05:42
DX: Z00.00 Encounter for general adult medical examination without abnormal findings (principal); E78.5 Hyperlipidemia, unspecified; K21.9 Gastro-esophageal reflux disease without esophagitis; F41.9 Anxiety disorder, unspecified; R07.9 Chest pain, unspecified; Z88.7 Allergy status to serum and vaccine; Z90.49 Acquired absence of other specified parts of digestive tract; Z98.890 Other specified postprocedural states; Z87.09 Personal history of other diseases of the respiratory system; Z87.19 Personal history of other diseases of the digestive system
CPT/HCPCS: 71045; A4663